=== PATIENT | female | born 1960 | race Caucasian/White ===

== ENCOUNTER 2024-06-11 08:03 | Day surgery (SDC) | payer MEDICARE, OTHER ==
[~2024-06-11] VITALS: Ht 162.6 cm; Wt 73.2 kg
[2024-06-11] VITALS (11 sets, daily range): BP systolic 105–143; BP diastolic 54–69; PULSE 58–69; RESP 16; TEMP 97.5; O2SAT 91–98
[~2024-06-11 08:03] MED LIST: ATOR40TA PO; BENZ-16 PO; BUPR150T8 PO; CLOP75TA34 PO; ENOX40DI11 SQ; ETAN50DI SUBCUT; FURO-149 PO; HYDR-3972 PO; LISI10TA27 PO; LOP25T PO; PANT40TA54 PO; POTA-207 PO
[2024-06-11] MEDS ORDERED: LORazepam 0.5 MG tablet PO PRN (08:30)
[2024-06-11] MEDS ORDERED: diphenhydrAMINE 25mg capsule PO PRN (08:30)
[2024-06-11] MEDS ORDERED: CARV6.2553 PO (09:02)
[2024-06-11] MEDS ORDERED: SPIR25TA5 PO (09:02)
[2024-06-11] MEDS ORDERED: ROSU20TA73 PO (09:02)
[2024-06-11] MEDS ORDERED: LOSA25TA41 PO (09:02)
[2024-06-11] MEDS: SODIUM BICARBONATE 150MEQ IN D5W 1,000 ML IV ONE (09:22)
[2024-06-11] MEDS: normal saline 1,000 ML IV SCH (09:23)
[2024-06-11] MEDS ORDERED: verapamil 2.5 mg/ml inj IV ONE (09:51)
[2024-06-11] MEDS ORDERED: LIDOcaine 1% (10mg/ml) 2ml vial ONE (09:51)
[2024-06-11] MEDS ORDERED: midazolam 1 mg/ML 2ml injection ONE (09:52)
[2024-06-11] MEDS ORDERED: fentaNYL/PF 50MCG/1 ML 2ML syringe ONE (09:52)
[2024-06-11] MEDS ORDERED: heparin 1,000unit/ml 10ml vial 10 ML ONE (09:52)
[2024-06-11] MEDS ORDERED: iohexol 350MG/ML 100ml bottle IV ONE (09:52)
[2024-06-11] MEDS ORDERED: iohexol 350 MG/ML 50ML vial IV ONE (09:52)
[2024-06-11] MEDS ORDERED: nitroGLYCERIN 500mcg/5mL D5W 5 ML IV ONE (09:53)
== END 2024-06-11 15:50 | disposition home or self-care (01) ==
LOC: SSTAY O 08:03
PROVIDERS: ATTEND Internal Medicine Cardiovascular Disease
DX: T82.855A Stenosis of coronary artery stent, initial encounter (principal); I25.10 Atherosclerotic heart disease of native coronary artery without angina pectoris; I11.0 Hypertensive heart disease with heart failure; I50.22 Chronic systolic (congestive) heart failure; E78.5 Hyperlipidemia, unspecified; J44.9 Chronic obstructive pulmonary disease, unspecified; I42.0 Dilated cardiomyopathy; I25.2 Old myocardial infarction; Z79.899 Other long term (current) drug therapy; Z95.5 Presence of coronary angioplasty implant and graft; Z82.49 Family history of ischemic heart disease and other diseases of the circulatory system; Y83.8 Other surgical procedures as the cause of abnormal reaction of the patient, or of later complication, without mention of misadventure at the time of the procedure; Y92.89 Other specified places as the place of occurrence of the external cause
CPT/HCPCS: 93005; 93458; 99152; 99153; J1644; J2250; J3010; J3490; J7030; J7070; Q9967; A6258; A6402; C1725; C1894